=== PATIENT | female | born 1950 | race Caucasian/White ===

== ENCOUNTER 2017-08-04 10:50 | Outpatient (CLI) | END 2017-08-04 10:51 | disposition home or self-care (01) | LOC: RAD 10:50 | PROVIDERS: ATTEND Family Medicine | DX: Z12.31 Encounter for screening mammogram for malignant neoplasm of breast (principal) | CPT/HCPCS: 77067 ==

== ENCOUNTER 2017-08-13 09:20 | Outpatient (CLI) ==
--- NOTE | 2017-08-13 10:28 | US ---
EXAM: Right breast mammogram and ultrasound HISTORY: Abnormal mammogram COMPARISON: Mammogram 08/22/2015 FINDINGS: Digital diagnostic mammogram: Exaggerated CC view and spot compression views. CC and MLO views were performed. There is a spicula reanna mass in the right superior lateral breast posterior depth. Ultrasound Ultrasound right breast was performed. At the 10 o'clock position and 8 cm from the nipple, there is a spiculated hypoechoic mass with shadowing, measuring 2.1 x 1.7 x 1.9 cm. Ultrasound right axilla was performed. In this region, there are two lymph nodes, one measuring 1.5 x 1.5 cm with mildly thi ckened cortex. IMPRESSION: Spiculated right breast mass. The finding is highly suspicious for malignancy. Tissue sampling recommended. Additionally, there is a right axillary lymph node with mildly thickened vel x. This can also be sampled. Findings would be amendable to ultrasound-guided biopsy. BIRADS category 5, highly suspicious.
== END 2017-08-13 09:21 | disposition home or self-care (01) ==
LOC: RAD 09:20
PROVIDERS: ATTEND Family Medicine
DX: R92.2 Inconclusive mammogram (principal)

== ENCOUNTER 2018-08-11 08:52 | Outpatient (CLI) | payer OTHER ==
--- NOTE | 2018-08-12 09:29 | MAMMO ---
EXAM: Left digital screening mammogram (2-D and 3-D) History: Screening Comparison: Bilateral mammogram 08/04/2017 Findings: MLO and CC views of the left breast demonstrate scattered fibroglandular breast parenchyma . CAD was reviewed by the radiologist. Tomosynthesis was performed. Stable benign vascular and scatt ered calcifications within the left breast. There are no suspicious microcalcifications and no domin ant masses. No architectural distortions Impression: Stable benign left mammogram. Recommend follow-up mammogram in 1 year. BIRADS 2
== END 2018-08-11 08:53 | disposition home or self-care (01) ==
LOC: RAD 08:52
PROVIDERS: ATTEND Family Medicine
DX: Z12.31 Encounter for screening mammogram for malignant neoplasm of breast (principal); Z85.3 Personal history of malignant neoplasm of breast

== ENCOUNTER 2018-11-30 10:02 | Outpatient (CLI) | payer OTHER | END 2018-11-30 10:03 | disposition home or self-care (01) | LOC: LAB 10:02 | PROVIDERS: ATTEND Specialist | DX: E83.52 Hypercalcemia (principal) | CPT/HCPCS: 36415; 80053 ==